=== PATIENT | male | born 1945 | race Caucasian/White ===

== ENCOUNTER 2020-06-13 07:24 | Day surgery (SDC) | payer OTHER ==
[2020-06-09 16:31] LABS: Absolute Lymphocytes (CBC) 1.3 K/uL (0.7-4.9); Basophils % 1.4 % (0-1.3); Hematocrit 37.6 % (39.6-49.0); MPV 7.9 fL (7.6-11.3); RBC Red Blood Cell Count 3.85 M/uL (4.33-5.43)
[2020-06-09 16:43] LABS: BUN Blood Urea Nitrogen 17 mg/dL (7-18); Bicarbonate 29 mmol/L (21-32); Glucose Level 99 mg/dL (74-106); Potassium 4.1 mmol/L (3.5-5.1); Sodium Level 142 mmol/L (136-145)
[2020-06-09 16:48] LABS: Protime INR 0.98
--- NOTE | 2020-06-09 16:56 | RAD REPORT ---
EXAM DESCRIPTION: RAD - Chest Pa And Lat (2 Views) - 06/09/2020 4:40 pm CLINICAL HISTORY: preop Chest pain. COMPARISON: CHEST PA AND LAT 2 VIEW dated 03/11/2012; CHEST PA AND LAT 2 VIEW dated 09/04/2011 TECHNIQUE: PA and lateral views of the chest were obtained. FINDINGS: The lungs are hyperexpanded compatible with COPD. The heart is upper limit of normal in si ze. No fracture or aggressive bony process. IMPRESSION: COPD without acute process identified.
--- NOTE | 2020-06-10 12:48 | EKG ---
Test Date: 2020-06-09 Test Time: 15:07:51 Energy Administrator: ELLIE MEASUREMENT RESULTS: Intervals: Rate: 47 AR: 362 QRSD: 96 QT: 482 QTc: 426 [place]: P: 68 AR: 362 QRS: 10 T: 55 INTERPRETIVE STATEMENTS: Marked sinus bradycardia with 1st degree AV block Abnormal ECG Compared to ECG 03/10/2001 11:30:00 First degree AV block now present Left ventricular hypertrophy no longer present Electronically Signed On 06-10-20 12:45:32 CDT by Hank Marcos
[2020-06-13] MEDS ORDERED: NA CHLORIDE 0.9% 500 ML ONE (07:45)
[2020-06-13] MEDS ORDERED: HEPA 1000U/500MLS 1,000 UNIT/500 ML BAG IV ONE (08:16)
[2020-06-13] MEDS ORDERED: ATROPINE SULF 1 MG/10 ML SYR IV ONE (08:17)
[2020-06-13] MEDS ORDERED: MIDAZOLAM HCL 2 MG/2 ML INJ ONE ×2 (08:17→08:47)
[2020-06-13] MEDS ORDERED: FENTANYL CITR 100 MCG/2 ML ONE (08:17)
[2020-06-13] MEDS ORDERED: NA CHLORIDE 0.9% 0 ML ONE (08:17)
[2020-06-13 11:04] VITALS: TEMP 96.7
[2020-06-13 11:05] VITALS: BP 173/88; O2SAT 99
--- NOTE | 2020-06-13 12:26 | OP ---
Surgeon: Hank Marcos MD Anesthesia Director: Dali Dewey. Procedure Performed: Admitted as an outpatient today to the research lab assistant for left heart catheterization, selective coronary arteriogram. Indication: Hypertension, atypical chest pain, and a positive stress test. Procedure In Detail: Mr. Cross is a 74-year-old male with history of hypertension. Had an abnormal stress test. Brought to the research lab assistant today as an outpatient, prepped and draped in the routine ster ile fashion. Given Versed and fentanyl for sedation. Using Seldinger technique, a 6-Kuwaiti sheath i ntroduced in the right common femoral artery successfully. Angiography there was normal. He had 10 mL of Xylocaine. Angio-Seal was used to close the case. Kelly catheter left and right were used t o cannulate the left main and right main respectively. He was found to have a very large left main c ircumflex and LAD proximally. 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 The RCA was normal, 20% stenosis approximately. He was left dominant. The patient tolerated t he procedure well. There were no complications. A 6-Kuwaiti catheters and sheaths were used. Blood loss was 5 mL. 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 Plan: Plan for medical therapy. I will increase his beta-donald. Consider use of statin. Anesthesia: Total conscious sedation 45 minutes. The patient will remain at bedrest for 2 hours after the procedure and he will go home. I will see h im in the office in 2 weeks. KATERINA/TAQUERIA Voice ID: [id number] Report ID: [id number]
== END 2020-06-13 11:11 | disposition home or self-care (01) ==
LOC: CCL 07:24
DX: I25.10 Atherosclerotic heart disease of native coronary artery without angina pectoris (principal); I25.41 Coronary artery aneurysm; I10 Essential (primary) hypertension; Z88.0 Allergy status to penicillin; Z20.822 Contact with and (suspected) exposure to COVID-19
CPT/HCPCS: 93005; 85025; 80048; 36415; 85610; 85730; 71046; 93454; U0003; C1893; C1760; J2250; J3010; J7040; J1644; J0583

== ENCOUNTER 2020-08-26 03:54 | Inpatient (IN) | payer OTHER ==
--- OUTSIDE RECORDS SUMMARY | 2020-08-26 03:56 | XMS REPORT | Continuity of Care Document ---
:1945 Author Organization [facility] t Address [address] [place] [address] Care Team Providers Name Role Phone Sarah Castano DO Primary Care Physician [phone] Payers Payer Name Policy Type Policy Number Effective Date Expiration Date S ource Problems This patient has no known problems. Allergies, Adverse Reactions, Alerts Allergy Allergy Status Severity Reaction(s) Onset Inactive Treating Comm ents Source Name Type Date Date Clinician Penicill Propensi Active 2018-0 [place] ins ty to 913 [facility] adverse 00:00: st reaction 00 s to drug Penicill DA Active SV 2018-0 [facility] 5[facility]10 [place] Social History Social Habit Start Date Stop Date Quantity Comments Source History [facility] Alcohol Std Drinks History [facility] Alcohol Binge Tobacco use and 2018-11-14 2018-11-14 Never used Nakul Rueda ethodist exposure 00:00:00 00:00:00 Alcohol intake 2018-11-14 2018-11-14 [facility] 00:00:00 00:00:00 non-drinker (finding) History [facility] 2018-11-14 2018-11-14 1 [facility] Alcohol Frequency 00:00:00 00:00:00 Sex Ass[birth year] At [birth year] Mota Mohit ethodist 00:00:00 00:00:00 Smoking Status Start Date Stop Date Source Never smoker Nakul Rosas t Medications Ordered Filled Start Stop Current Ordering Indication Dosage Frequency Signature Comments Components Source Medication Medication Date Date Medication? Clinician (SIG) Name Name ferrous Yes 325mg QD Take 325 [place] on sulfate 325 9-13 mg by Method[facility] (65 FE) MG 10:24: mouth st tablet 56 daily with breakfast. atenolol Yes 50mg QD Take 50 mg Micaela ston (TENORMIN) 8-18 by mouth Metho di 50 MG 00:00: daily. st tablet 00 lisinopril Yes 20mg QD Take 20 mg [place] (PRINIVIL,Z 7-15 by mouth Meth jay ESTRIL) 20 00:00: daily. st mg tablet 00 tamsulosin Yes .4mg QD Take 0.4 Micaela ston (FLOMAX) 7-11 mg by Methodi 0.4 mg 00:00: mouth st capsule 00 daily. Procedures This patient has no known procedures. Plan of Care Planned Activity Planned Date Details Comments Source Future Scheduled 2020-10-02 INFLUENZA VACCINE [facility] 00:00:00 [code = INFLUENZA VACCINE] Future Scheduled 2012-11-21 65+ PNEUMOCOCCAL [facility] 00:00:00 VACCINE (1 of 1 - PPSV23) [code = 65+ PNEUMOCOCCAL VACCINE (1 of 1 - PPSV23)] Future Scheduled 1997-11-21 COLONOSCOPY SCREENING Ho [facility] 00:00:00 [code = COLONOSCOPY SCREENING] Future Scheduled 1997-11-21 SHINGLES VACCINES (#1) [facility] 00:00:00 [code = SHINGLES VACCINES (#1)] Future Scheduled 1965-11-21 Hepatitis C screening [facility] 00:00:00 (procedure) [code = 070897669] Future Scheduled 1959 COVID-19 VACCINE (1) Micaela st[facility] 00:00:00 [code = COVID-19 VACCINE (1)] Results Test Description Test Time Test Comments Results Result Comments Source SURG 2018-07-22 15:59:00 --------RUN DATE: 07/22/18 [facility], [place] - LAB *LIVE* PAGE 1 RUN TIME: 1559 Specimen Inquiry RUN USER: INTERFACE --------PATIENT: TIM ALMEIDA LOC: FERMIN #: [id number] AGE/SX: 72/M ROOM: [facility] RE07/21/18REG DR: Jean Pierre Iniguez MD : 49 BED: 1 DIS: 07/22/18 STATUS: DIS Evelyn TLOC: -------- SPEC #: [id number] RECD: 07/21/18 STATUS: PREMA REQ #: [id number] GIOVANNA: 07/21/18-[address]: Jean Pierre Iniguez MD ENTERED: 07/21/18 SP TYPE: SURG OTHR DR: Luca Castano DO ORDERED: SURG PATH LVL 2 [place]: [place] [id number] [place] [address] [place] [id number] [employer] [facility] [address] [address] HISTOLOGY: TISSUE ID BLK PCS KEL LEV PROCEDURE DISPOSITION ____ ___ ___ ___ SOFT TISSUES, N A 1 PROCEDURES: SURG PATH LVL 2 (07/22/18-1238) TISSUES: A. SOFT TISSUES, NOS - UMBILICAL HERNIA CONTENTS CLINICAL HISTORY UMBILICAL HERNIA K43.9 CPT CODES CPT CODE(S): 24434 , , , , , , FINAL DIAGNOSIS Soft tissue, umbilical, hernia repair: MESOTHELIAL LINED SOFT TISSUE GROSS DESCRIPTION Umbilical hernia contents. Received in formalin is an irregular fragment of yellow-ornelas soft tissue, 1.0 x 0.8 x 0.6 cm. The specimen is serially sectioned and reveals fibrofatty soft tissue. The entire specimen submitted as A. ba/nr Grossing performed at [facility] [place] Pathology, [facility], [address], CONTINUED ON NEXT PAGE --------RUN DATE: 07/22/18 [facility] [place] - LAB *LIVE* PAGE 2 RUN TIME: 1559 Specimen Inquiry RUN USER: INTERFACE --------SPEC #: [id number] PATIENT: ELLETIM STREETER #[id number] (Continued) GROSS DESCRIPTION (Continued) [place], [place] [address]. Sanitation Superintendent: Kar Salazar M.D. MICROSCOPIC DESCRIPTION Umbilical hernia contents. Sections demonstrate soft tissue with mesothelial cell lining. Mild chronic inflammation is identified. No organs or major structures are seen. Signed SIGNATURE ON FILE Rene Brantley 07/22/18 1559 -------- END OF REPORT - XR CHEST 1 V 2018-07-11 Name: TIM ALMEIDA 12:10:00 [facility] : 1945 Age/S: 72 / M [address] Unit #: [id number] Loc: [place] [address] Phys: Jean Pierre Iniguez MD Acct: [id number] Dis Date: Status: PRE [facility] PHONE #: [phone] Exam Date: 07/11/2018 1206 FAX #: Reason: PRE OP EXAMS: CPT: [id number] XR CHEST 1 V 24661 Fluoro Time: DAP (Gy m2): Air Kerma (mGy): LOCATION: T18 EXAM: CHEST 1 VIEW INDICATION: PRE OP COMPARISON: None. TECHNIQUE: AP chest radiograph. FINDINGS: Lungs are clear bilaterally without effusion. Heart is normal in size. Bones and peripheral soft tissues are unremarkable. IMPRESSION: Lungs are clear. No acute abnormality. at 1210 Reported and signed by: Sean Colbert M.D. CC: Luca Castano DO; Jean Pierre Iniguez MD PAGE 1 Signed Report Name: TIM ALMEIDA [facility] : 1945 Age/S: 72 / M [address] Unit #: [id number] Loc: [place] [address] Phys: Jean Pierre Iniguez MD Acct: [id number] Dis Date: Status: PRE SDC PHONE #: [phone] Exam Date: 07/11/2018 1208 FAX #: Reason: PRE OP EXAMS: CPT: [id number] XR CHEST 1 V 45809 Fluoro Time: DAP (Gy m2): Air Kerma (mGy): <Continued> Technologist: Desmond Loyd RT(R)(CT) Trnscb Date/Time: 07/11/2018 (1210) [email or web address] Orig Print D/T: S: 07/11/2018 (1314) PAGE 2 Signed Report
[2020-08-26] MEDS ORDERED: NA CHLORIDE 0.9% 1,000 ML ONE ×2 (05:18→09:09)
[2020-08-26] MEDS ORDERED: ONDANSETRON 4 MG/2 ML VIAL ONE (05:18)
[2020-08-26 05:45] LABS: Absolute Lymphocytes (CBC) 0.6 K/uL (0.7-4.9); Basophils % 0.3 % (0-1.3); Hematocrit 44.5 % (39.6-49.0); Lymphocytes % 6.2 % (15.3-44.8); MPV 8.3 fL (7.6-11.3)
[2020-08-26 06:20] LABS: ALT/SGPT 32 U/L (12-78); AST/SGOT 23 U/L (15-37); Albumin 3.9 g/dL (3.4-5.0); Alkaline Phosphatase 63 U/L (45-117); BUN Blood Urea Nitrogen 32 mg/dL (7-18); Bicarbonate 26 mmol/L (21-32); Bilirubin Direct 0.2 mg/dL (0-0.2); Bilirubin Total 0.8 mg/dL (0.2-1.0); Glucose Level 140 mg/dL (74-106); Lipase 72 U/L (73-393); Magnesium 2.3 mg/dL (1.8-2.4); NT PRO-BNP 1050 pg/mL (<125); Potassium 4.1 mmol/L (3.5-5.1); Protein, Total 7.7 g/dL (6.4-8.2); Sodium Level 141 mmol/L (136-145); Troponin (Emerg Dept Use Only) < 0.02 ng/mL (0.0-0.045)
[2020-08-26 06:21] LABS: Protime INR 1.02
--- NOTE | 2020-08-26 07:29 | RAD REPORT ---
EXAM DESCRIPTION: CT - Abdomen Pelvis W Contrast - 08/26/2020 6:46 am CLINICAL HISTORY: Abdominal pain COMPARISON: none. TECHNIQUE: Computed axial tomography of the abdomen pelvis was obtained. 100 cc Isovue-300 was admin istered intravenously. Oral contrast was not requested which limits evaluation of bowel and appendix. All CT scans are performed using dose optimization technique as appropriate and may include automated exposure control or mA/KV adjustment according to patient size. FINDINGS: postsurgical changes involve the stomach and small bowel. The stomach is distended. Moderate dilatation of jejunum. Ileum is normal caliber. There is swirling of the small bowel within and the anterior lower abdomen just above the level of the iliac crest. This has the appearance of a volvulus. Several small low-density hepatic lesions too small to characterize by CT criteria probably cyst. Spleen, pancreas and adrenals unremarkable. Small nonobstructing left renal calculus. 15 millimeter cyst extends off of the right kidney. Mild enlargement of the prostate gland. No evidence of diverticulitis. Small amount of ascites IMPRESSION: Obstruction in the region of the distal jejunum. There appears to be a volvulus in this region.
--- NOTE | 2020-08-26 08:12 | ER ---
Nurse's Notes [facility] Name: Anuj Cross Age: 74 yrs Sex: Male : 1945 Arrival Date: 08/26/2020 Time: 03:57 Bed 15 Private MD: Diagnosis: Abdominal tenderness-HISTORY OF GASTRIC BYPASS;Volvulus;Vomiting Presentation: 08/26 04:24 Chief complaint: Patient states: N/V and some diarrhea since 1130 PM, reports pain em about umbilical area, denies fever. Coronavirus screen: Client denies travel out of the [place] in the last 14 days. Ebola Screen: Patient negative for fever greater than or equal to 101.5 degrees Fahrenheit, and additional compatible Ebola Virus Disease symptoms Patient denies exposure to infectious person. Patient denies travel to an Ebola-affected area in the 21 days before illness onset. No symptoms or risks identified at this time. Initial Sepsis Screen: Does the patient meet any 2 criteria? No. Patient's initial sepsis screen is negative. Does the patient have a suspected source of infection?. Risk Assessment: Do you want to hurt yourself or someone else? Patient reports no desire to harm self or others. Onset of symptoms was August 26, 2020. 04:24 Method Of Arrival: Ambulatory em 04:24 Acuity: LOUIE 3 em Historical: - Allergies: 04:27 PENICILLINS; em - PMHx: 04:27 Hypertension; em - PSHx: 04:27 Hernia repair; Gastric Bypass; em - Immunization history:: Adult Immunizations up to date. - Social history:: Smoking status: Patient denies any tobacco usage or history of. Screenin:00 Abuse screen: Denies threats or abuse. Denies injuries from another. Nutritional bp screening: No deficits noted. Tuberculosis screening: No symptoms or risk factors identified. Fall Risk None identified. Assessment: 04:30 General: Appears in no apparent distress. comfortable, Behavior is calm, cooperative, jb4 appropriate for age. Pain: Denies pain. Neuro: Level of Consciousness is awake, alert, obeys commands, Oriented to person, place, time, situation. Cardiovascular: Patient's skin is warm and dry. Respiratory: Airway is patent Respiratory effort is even, unlabored, Respiratory pattern is regular, symmetrical. GI: Abdomen is flat, non-distended, Reports nausea. : No signs and/or symptoms were reported regarding the genitourinary system. EENT: No signs and/or symptoms were reported regarding the EENT system. Derm: Skin is intact, Skin is pink, warm \T\ dry. Musculoskeletal: Circulation, motion, and sensation intact. Range of motion: intact in all extremities. 05:30 Reassessment: Patient appears in no apparent distress at this time. Patient and/or jb4 family updated on plan of care and expected duration. Pain level reassessed. Patient is alert, oriented x 3, equal unlabored respirations, skin warm/dry/pink. Patient states feeling better. 07:00 Reassessment: RECD REPORT FROM SRIDHAR QUINONEZ. 74YO WM P/W VOMITING. CT RESULTS PENDING. bp 09:00 Reassessment: Patient and/or family updated on plan of care and expected duration. Pain bp level reassessed. Patient is alert, oriented x 3, equal unlabored respirations, skin warm/dry/pink. HOSPITALIST AT B/S. ADMIT INITIATED. 11:00 Reassessment: ADMIT IN PROCESS. PT MOVED TO ED HOLD. bp 13:00 Reassessment: DR HOYT, SURG C/S, AT B/. bp 14:00 Reassessment: Patient appears in no apparent distress at this time. No changes from bp previously documented assessment. Patient and/or family updated on plan of care and expected duration. Pain level reassessed. ADMIT CANCELLED IN FAVOR OF TRANSFER TO [facility]. 15:00 Reassessment: No changes from previously documented assessment. Patient and/or family bp updated on plan of care and expected duration. Pain level reassessed. TRANSFER IN PROCESS. 16:18 Reassessment: REPORT TO SEPTEMBER RN AT [facility]. TRANSPORT PENDING. bp Vital Signs: 04:24 BP 135 / 96; Pulse 65; Resp 18; Temp 97.5; Pulse Ox 99% on R/A; Weight 108.86 kg; bp Height 6 ft. 4 in. (193.04 cm); Pain 0/10; 05:45 BP 141 / 74; Pulse 54; Resp 16; Pulse Ox 94% on R/A; jb4 07:00 BP 174 / 92; Pulse 58; Resp 16; Pulse Ox 97% ; bp 08:00 BP 173 / 95; Pulse 61; Resp 17; Pulse Ox 100% ; bp 09:00 BP 180 / 102; Pulse 60; Resp 17; Pulse Ox 100% ; bp 10:00 BP 197 / 92; Pulse 58; Resp 15; Pulse Ox 97% ; bp 11:00 BP 159 / 92; Pulse 66; Resp 15; Pulse Ox 96% ; bp 12:00 BP 145 / 66; Pulse 63; Resp 15; Pulse Ox 96% ; bp 13:00 BP 141 / 90; Pulse 69; Resp 15; Pulse Ox 96% ; bp 14:00 BP 166 / 79; Pulse 56; Resp 15; Pulse Ox 96% ; bp 15:00 BP 169 / 87; Pulse 62; Resp 16; Pulse Ox 96% ; bp 04:24 Body Mass Index 29.21 (108.86 kg, 193.04 cm) bp ED Course: 03:57 Patient arrived in ED. es 04:26 Triage completed. em 04:27 Arm band placed on. em 04:33 Greg Pena MD is Attending Physician. cristian 04:58 Fortino Cat, RN is Primary Nurse. jb4 05:10 Inserted saline lock: 20 gauge in right forearm, using aseptic technique. Blood bp collected. 05:14 XRAY Chest (1 view) In Process Unspecified. EDMS 06:46 CT Abd/Pelvis - IV Contrast Only In Process Unspecified. EDMS 07:00 Patient has correct armband on for positive identification. Bed in low position. Call bp light in reach. Side rails up X2. 07:09 Primary Nurse role handed off by Fortino Cat, RN bp 07:09 Willie Zapata, RN is Primary Nurse. bp 08:06 Juan Garza MD is Hospitalizing Provider. cristian 13:[address] Pena with Claudia from the [facility]. eb 13:[address] Hoyt the Bariatric Surgeon licensed nurse practitioner with Dr. Pena for patient eb transfer consultation. 14:17 administrative approval given by Claudia Martinez/ patient has been accepted to [facility]. / Dr. Hank Rao has accepted the patient in transfer/ faxing over a face sheet to [phone]. 14:30 patient will be going to [facility] Rm 434. eb 14:42 No provider procedures requiring assistance completed. Patient transferred, IV remains bp in place. Administered Medications: 05:10 Drug: Zofran (Ondansetron) 4 mg Route: IVP; Site: right forearm; jb4 10:54 Follow up: Response: No adverse reaction; No change in condition kg 05:10 Drug: NS 0.9% 1000 ml Route: IV; Rate: 1 bolus; Site: right forearm; jb4 11:09 Follow up: IV Status: Completed infusion; IV Intake: 1000ml bp 08:20 Drug: Pepcid (famotidine) 20 mg Route: IVP; Site: right forearm; bp 10:54 Follow up: Response: No adverse reaction; No change in condition kg 08:20 Drug: Cipro (ciprofloxacin) 400 mg Volume: 200 ml; Route: IVPB; Infused Over: 60 mins; bp Site: right forearm; 11:10 Follow up: IV Status: Completed infusion; IV Intake: 200ml bp 08:20 Drug: Flagyl (metroNIDAZOLE) 500 mg Volume: 100 ml; Route: IVPB; Rate: 200 ml/hr; bp Infused Over: 30 mins; Site: right forearm; 11:09 Follow up: IV Status: Completed infusion; IV Intake: 100ml bp 08:20 Drug: NS 0.9% 1000 ml Route: IV; Rate: 125 ml/hr; Site: right forearm; bp 11:10 Follow up: IV Status: Completed infusion bp 11:00 Drug: Zofran (Ondansetron) 4 mg Route: IVP; Site: right forearm; bp Intake: 11:09 IV: 100ml; Total: 100ml. bp 11:09 IV: 1000ml; Total: 1100ml. bp 11:10 IV: 200ml; Total: 1300ml. bp Outcome: 08:11 Decision to Hospitalize by Provider. cristian 14:00 ER care complete, transfer ordered by . cristian 16:18 Transferred by ground EMS to [facility], Transfer form completed. bp 16:18 Condition: stable 16:18 Instructed on the need for transfer. 17:04 Patient left the ED. zb Signatures: Dispatcher [employer] Greg Anna MD MD cha Salyer, Edna es Munoz, Edgar, RN RN Fortino Wilson RN RN jb4 Willie Zapata RN RN bp Botello, Elizabeth eb Brown, Zipporah, RN RN zb Herrera, Edel, RN RN kg Corrections: (The following items were deleted from the chart) 13:43 04:24 BP 135 / 96; Pulse 65bpm; Resp 18bpm; Pulse Ox 99% RA; Temp 97.5F; 108.86 kg; bp Height 6 ft. 4 in.; BMI: 29.2; Pain 0/10; em
--- NOTE | 2020-08-26 08:12 | EDPHYS ---
Physician Documentation [facility] Name: Anuj Cross Age: 74 yrs Sex: Male : 1945 Arrival Date: 08/26/2020 Time: 03:57 Bed 15 Private MD: ED Physician Greg Pena HPI: 08/26 06:03 This 74 yrs old Male presents to ER via Ambulatory with complaints of cristian Vomiting. 06:03 The patient presents to the emergency department with nausea, vomiting, abdominal pain, cristian of the right upper quadrant, left upper quadrant, right lower quadrant and left lower quadrant. Onset: The symptoms/episode began/occurred yesterday. Possible causes: unknown. The symptoms are aggravated by nothing. The symptoms are alleviated by nothing. Associated signs and symptoms: The patient has no apparent associated signs or symptoms. Severity of symptoms: At their worst the symptoms were mild in the emergency department the symptoms are unchanged. The patient has not experienced similar symptoms in the past. Historical: - Allergies: 04:27 PENICILLINS; em - PMHx: 04:27 Hypertension; em - PSHx: 04:27 Hernia repair; Gastric Bypass; em - Immunization history:: Adult Immunizations up to date. - Social history:: Smoking status: Patient denies any tobacco usage or history of. ROS: 06:04 Constitutional: Negative for fever, chills, and weight loss, Eyes: Negative for injury, cristian pain, redness, and discharge, ENT: Negative for injury, pain, and discharge, Neck: Negative for injury, pain, and swelling, Cardiovascular: Negative for chest pain, palpitations, and edema, Respiratory: Negative for shortness of breath, cough, wheezing, and pleuritic chest pain, Back: Negative for injury and pain, : Negative for injury, bleeding, discharge, and swelling, MS/Extremity: Negative for injury and deformity, Skin: Negative for injury, rash, and discoloration, Neuro: Negative for headache, weakness, numbness, tingling, and seizure, Psych: Negative for depression, anxiety, suicide ideation, homicidal ideation, and hallucinations, Allergy/Immunology: Negative for hives, rash, and allergies, Endocrine: Negative for neck swelling, polydipsia, polyuria, polyphagia, and marked weight changes, Hematologic/Lymphatic: Negative for swollen nodes, abnormal bleeding, and unusual bruising. 06:04 Abdomen/GI: Positive for abdominal pain, nausea and vomiting, of the right upper quadrant, left upper quadrant, right lower quadrant and left lower quadrant. Exam: 06:04 Constitutional: This is a well developed, well nourished patient who is awake, alert, cristian and in no acute distress. Head/Face: Normocephalic, atraumatic. Eyes: Pupils equal round and reactive to light, extra-ocular motions intact. Lids and lashes normal. Conjunctiva and sclera are non-icteric and not injected. Cornea within normal limits. Periorbital areas with no swelling, redness, or edema. ENT: Nares patent. No nasal discharge, no septal abnormalities noted. Tympanic membranes are normal and external auditory canals are clear. Oropharynx with no redness, swelling, or masses, exudates, or evidence of obstruction, uvula midline. Mucous membranes moist. Neck: Trachea midline, no thyromegaly or masses palpated, and no cervical lymphadenopathy. Supple, full range of motion without nuchal rigidity, or vertebral point tenderness. No Meningismus. Chest/axilla: Normal chest wall appearance and motion. Nontender with no deformity. No lesions are appreciated. Cardiovascular: Regular rate and rhythm with a normal S1 and S2. No gallops, murmurs, or rubs. Normal PMI, no JVD. No pulse deficits. Respiratory: Lungs have equal breath sounds bilaterally, clear to auscultation and percussion. No rales, rhonchi or wheezes noted. No increased work of breathing, no retractions or nasal flaring. Abdomen/GI: Soft, non-tender, with normal bowel sounds. No distension or tympany. No guarding or rebound. No evidence of tenderness throughout. Back: No spinal tenderness. No costovertebral tenderness. Full range of motion. Male : Normal genitalia with no discharge or lesions. Skin: Warm, dry with normal turgor. Normal color with no rashes, no lesions, and no evidence of cellulitis. MS/ Extremity: Pulses equal, no cyanosis. Neurovascular intact. Full, normal range of motion. Neuro: Awake and alert, GCS 15, oriented to person, place, time, and situation. Cranial nerves II-XII grossly intact. Motor strength 5/5 in all extremities. Sensory grossly intact. Cerebellar exam normal. Normal gait. Psych: Awake, alert, with orientation to person, place and time. Behavior, mood, and affect are within normal limits. 06:06 ECG was reviewed by the Attending Physician. [facility] Vital Signs: 04:24 BP 135 / 96; Pulse 65; Resp 18; Temp 97.5; Pulse Ox 99% on R/A; Weight 108.86 kg; bp Height 6 ft. 4 in. (193.04 cm); Pain 0/10; 05:45 BP 141 / 74; Pulse 54; Resp 16; Pulse Ox 94% on R/A; jb4 07:00 BP 174 / 92; Pulse 58; Resp 16; Pulse Ox 97% ; bp 08:00 BP 173 / 95; Pulse 61; Resp 17; Pulse Ox 100% ; bp 09:00 BP 180 / 102; Pulse 60; Resp 17; Pulse Ox 100% ; bp 10:00 BP 197 / 92; Pulse 58; Resp 15; Pulse Ox 97% ; bp 11:00 BP 159 / 92; Pulse 66; Resp 15; Pulse Ox 96% ; bp 12:00 BP 145 / 66; Pulse 63; Resp 15; Pulse Ox 96% ; bp 13:00 BP 141 / 90; Pulse 69; Resp 15; Pulse Ox 96% ; bp 14:00 BP 166 / 79; Pulse 56; Resp 15; Pulse Ox 96% ; bp 15:00 BP 169 / 87; Pulse 62; Resp 16; Pulse Ox 96% ; bp 04:24 Body Mass Index 29.21 (108.86 kg, 193.04 cm) bp MDM: 04:33 Patient medically screened. [facility] 06:05 Differential diagnosis: Nonspecific abd pain, gastritis. Data reviewed: vital signs, [facility] nurses notes, lab test result(s), EKG, radiologic studies. 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 rate is 65 beats/min, rhythm is regular, Pulse oximetry: on room air is 99 %. Test interpretation: by ED physician or midlevel provider: ECG, plain radiologic studies. Counseling: I had a detailed discussion with the patient and/or guardian regarding: the historical points, exam findings, and any diagnostic results supporting the discharge/admit diagnosis, lab results, radiology results. 08/26 04:33 Order name: Basic Metabolic Panel; Complete Time: 07:48 tl1 08/26 04:33 Order name: CBC with Diff; Complete Time: 06:02 tl1 06/25 04:33 Order name: LFT's; Complete Time: 07:48 tl1 08/26 04:33 Order name: Magnesium; Complete Time: 07:48 tl1 08/26 04:33 Order name: NT PRO-BNP; Complete Time: 07:48 tl1 08/26 04:33 Order name: PT-INR; Complete Time: 07:48 tl1 08/26 04:33 Order name: Troponin (emerg Dept Use Only); Complete Time: 07:48 tl1 08/26 04:33 Order name: XRAY Chest (1 view); Complete Time: 14:11 tl1 08/26 04:33 Order name: Lipase; Complete Time: 07:48 tl1 08/26 05:27 Order name: CT Abd/Pelvis - IV Contrast Only; Complete Time: 07:48 [facility] 08/26 09:26 Order name: SARS-COV-2 RT PCR; Complete Time: 14:11 EDMS 08/26 04:33 Order name: EKG; Complete Time: 04:34 tl1 08/26 04:33 Order name: Cardiac monitoring; Complete Time: 05:14 tl1 08/26 04:33 Order name: EKG - Nurse/Tech; Complete Time: 05:50 tl1 08/26 04:33 Order name: IV Saline Lock; Complete Time: 05:14 tl1 08/26 04:33 Order name: Labs collected and sent; Complete Time: 05:14 tl1 08/26 04:33 Order name: O2 Per Protocol; Complete Time: 05:14 tl1 08/26 04:33 Order name: O2 Sat Monitoring; Complete Time: 05:14 tl1 08/26 09:43 Order name: CONS Physician Consult EDMS EC:06 Rate is 58 beats/min. Rhythm is regular. QRS Oil Trough is Normal. FL interval is normal. QRS cristian interval is normal. QT interval is normal. No Q waves. T waves are Normal. No ST changes noted. Clinical impression: Sinus bradycardia. Interpreted by me. Reviewed by me. Administered Medications: 05:10 Drug: Zofran (Ondansetron) 4 mg Route: IVP; Site: right forearm; jb4 10:54 Follow up: Response: No adverse reaction; No change in condition kg 05:10 Drug: NS 0.9% 1000 ml Route: IV; Rate: 1 bolus; Site: right forearm; jb4 11:09 Follow up: IV Status: Completed infusion; IV Intake: 1000ml bp 08:20 Drug: Pepcid (famotidine) 20 mg Route: IVP; Site: right forearm; bp 10:54 Follow up: Response: No adverse reaction; No change in condition kg 08:20 Drug: Cipro (ciprofloxacin) 400 mg Volume: 200 ml; Route: IVPB; Infused Over: 60 mins; bp Site: right forearm; 11:10 Follow up: IV Status: Completed infusion; IV Intake: 200ml bp 08:20 Drug: Flagyl (metroNIDAZOLE) 500 mg Volume: 100 ml; Route: IVPB; Rate: 200 ml/hr; bp Infused Over: 30 mins; Site: right forearm; 11:09 Follow up: IV Status: Completed infusion; IV Intake: 100ml bp 08:20 Drug: NS 0.9% 1000 ml Route: IV; Rate: 125 ml/hr; Site: right forearm; bp 11:10 Follow up: IV Status: Completed infusion bp 11:00 Drug: Zofran (Ondansetron) 4 mg Route: IVP; Site: right forearm; bp Disposition: 08/26/20 14:00 Transfer ordered to [facility]. Diagnosis are Abdominal tenderness - HISTORY OF GASTRIC BYPASS, Volvulus, Vomiting. - Reason for transfer: Higher level of care. - Accepting physician is to [facility]. - Condition is Fair. - Problem is new. - Symptoms have improved. Signatures: Dispatcher [employer] [facility] Greg Pena MD MD cha Munoz, Edgar, RN RN Lainey Lucio RN RN Meli Cedillo RN RN tl1 Fortino Cat RN RN jb4 Willie Zapata RN RN bp Botello, Elizabeth eb Brown, Zipporah, RN RN zEdel Grant, RN RN kg Corrections: (The following items were deleted from the chart) 08:33 08:04 CORONAVIRUS+.LAB.UNRULYZ ordered. [facility] 10:12 08:11 Hospitalization Ordered by Juan Garza MD for Inpatient Admission. Preliminary diagnosis is Abdominal tenderness; Vomiting; Volvulus - DISTAL JEJUNUM. Bed requested for Telemetry/MedSurg (Inpatient). Status is Inpatient Admission. Condition is Stable. Problem is new. Symptoms have improved. cristian 13:23 10:12 08/26/2020 08:11 Hospitalization Ordered by Juan Garza MD for Inpatient eb Admission. Preliminary diagnosis is Abdominal tenderness; Vomiting; Volvulus - DISTAL JEJUNUM. Bed requested for [facility] ER HOLD. Status is Inpatient Admission. Condition is Stable. Problem is new. Symptoms have improved. iw 13:54 13:23 08/26/2020 08:11 Hospitalization Ordered by Juan Garza MD for Inpatient eb Admission. Preliminary diagnosis is Abdominal tenderness; Vomiting; Volvulus - DISTAL JEJUNUM. Bed requested for Telemetry/MedSurg (Inpatient). Status is Inpatient Admission. Condition is Stable. Problem is new. Symptoms have improved. eb 13:57 13:54 08/26/2020 08:11 Hospitalization Ordered by Juan Garza MD for Inpatient cristian Admission. Preliminary diagnosis is Abdominal tenderness; Vomiting; Volvulus - DISTAL JEJUNUM. Bed requested for [facility] ER HOLD. Status is Inpatient Admission. Condition is Stable. Problem is new. Symptoms have improved. eb 17:04 14:00 08/26/2020 14:00 Transfer ordered to [facility]. Diagnosis is Abdominal zb tenderness - HISTORY OF GASTRIC BYPASS; Volvulus; Vomiting. Reason for transfer: Higher level of care. [place] physician [place] [facility] Condition is Fair. Problem is new. Symptoms have improved. cristian
--- NOTE | 2020-08-26 08:26 | RAD REPORT ---
EXAM DESCRIPTION: Telly Single View08/26/2020 5:14 am CLINICAL HISTORY: Cough COMPARISON: June 2020 FINDINGS: The lungs appear clear of acute infiltrate. The heart is borderline enlarged IMPRESSION: No acute abnormalities displayed
[2020-08-26] MEDS ORDERED: METRONIDAZOLE 500mg IVPB 500 MG/100 ML BAG IV ONE (09:09)
[2020-08-26] MEDS ORDERED: CIPROFLOXACIN 400mg IV 400 MG/200 ML BAG IV ONE (09:09)
[2020-08-26] MEDS ORDERED: FAMOTIDINE 20 MG/2 ML VIAL IV ONE (09:09)
--- NOTE | 2020-08-26 09:48 | P.HP ---
Certification for Inpatient Patient admitted to: Inpatient With expected LOS: >2 Midnights Practitioner: I am a practitioner with admitting privileges, knowledge of patient current condition, hospital course, and medical plan of care. Services: Services provided to patient in accordance with Admission requirements found in Title 42 Section 412.3 of the Code of Federal Regulations Patient History Date of Service: 08/26/20 Reason for admission: SBO vs volvulus History of Present Illness: 74yo M, PMH: HTN, Rebekah-en-Y gastric bypass, iron deficiency Pt presents to ED due to persistent nausea/vomiting since yesterday. Symptoms began yesterday morning with severe mid-abdominal pain after breakfast. Episode lasted ~2 hours. As the day progressed he began to have more nausea and vomiting (dark brown/greer emesis). Unable to keep anything down. Had a small BM last night. No flatus or BM today. No pain today. Emesis ~q1hr today. In the ED, workup noted for CT Abd/pelvis: obstruction in region of distal jejunum, appears to be a volvulus in this region. He does not appear septic at this time, labs rather unremarkable, mildly elevated BNP. ED provider discussed case with general surgery who stated would see patient in consult later this morning. Allergies Penicillins Allergy (Severe, Verified 06/09/20 15:55) childhood reaction, does not know - Past Medical/Surgical History -: HTN -: hernia repair -: Rebekah-en-Y gastric bypass - Family History Family History: Reviewed- Non-Contributory - Social History Smoking Status: Never smoker Alcohol use: No Place of Residence: Home Review of Systems 10-point ROS is otherwise unremarkable Physical Examination - Physical Exam General: Alert, Mild distress (+nausea, +emesis) HEENT: Mucous membr. moist/pink, Sclerae nonicteric Neck: Supple Respiratory: Clear to auscultation bilaterally, Normal air movement Cardiovascular: No edema, Regular rate/rhythm, Normal S1 S2 Gastrointestinal: Soft and benign, Non-distended, Tenderness (mild epigastric tenderness on deep palpation) Musculoskeletal: No contractures, No tenderness Integumentary: No rashes, No breakdown Neurological: Normal speech, Normal strength at 5/5 x4 extr, Normal affect - Studies Laboratory Data (last 24 hrs) 08/26/20 05:10: PT 11.7, INR 1.02 08/26/20 05:10: WBC 9.60, Hgb 14.8, Hct 44.5, Plt Count 266 08/26/20 05:10: Sodium 141, Potassium 4.1, BUN 32 H, Creatinine 0.93, Glucose 140 H, Magnesium 2.3, Total Bilirubin 0.8, AST 23, ALT 32, Alkaline Phosphatase 63, Lipase 72 L Assessment and Plan - Advance Directives Does patient have a Living Will: Yes Does patient have a Durable POA for Healthcare: Yes Physician Review Additional Text: Problem List Volvuls / SBO h/o Rebekah-en-Y gastric bypass HTN -NPO, IVF, cipro&flagyl -General surgery consulted - Dr. Muñoz -obtain/confirm home medications -IV PRN antihypertensives while NPO -nauseous / vomiting in ED, NGT to [facility] if persists -serial abd exams -pt not septic Time Spent Managing Pts Care (In Minutes): 65
[2020-08-26] MEDS ORDERED: NA CHLORIDE 0.9% 1,000 ML IV SCH (10:47)
[2020-08-26] MEDS ORDERED: HYDRALAZINE HCL 20 MG/ML VIAL IV PRN (10:47)
[2020-08-26] MEDS ORDERED: ONDANSETRON 4 MG/2 ML VIAL IV PRN (10:47)
[2020-08-26] MEDS ORDERED: HYDRALAZINE HCL 20 MG/ML VIAL ONE (11:48)
[2020-08-26 14:12] VITALS: BMI 29.2
[2020-08-26 14:22] VITALS: TEMP 98.9
--- NOTE | 2020-08-26 16:01 | CON ---
Date of Consultation: 08/26/2020 Reason For Service: Small bowel obstruction. History Of Present Illness: This is a case of a 74-year-old patient comes to us with abdominal pain. He has been having it for several days and nausea, vomiting associated with it, found to have a bow el obstruction and a surgical consult was obtained. His surgery was Rebekah-en-Y gastric bypass which w as done in 2004. His daughter also had the same surgery, but the doctor who practices those is no lo nger available. Allergies: PENICILLIN. Social History: He does smoke. He does not drink alcohol. Family History: Noncontributory. Social Habits: No smoking. No drinking. Surgeries: As above. Review of Systems: As per H and P. No melena. No hematochezia. Physical Examination: General: The patient is awake, alert. Eyes: Pupils anicteric. Chest: Clear. Abdomen: Soft and depressible. No peritonitis, but mildly distended. Pain over the left side of th e abdomen. Rectal: Deferred. Extremities: Good capillary refill. Laboratory Data: Blood work shows WBC count of 9.6 with hemoglobin of 14.8. INR is 1.02. Creatinin e is 0.93, glucose 140. CT scan of the abdomen and pelvis shows small bowel obstruction, shows posts urgical changes from Rebekah-en-Y gastric bypass with an area of intestine that look like he is obstruct ed and cannot rule out a volvulus or a scar tissue. No pericolonic, colonic wall or intestinal wall pneumatosis. changes after the Rebekah-en-Y gastric bypass or the possibility of a volvulus . Assessment: Small bowel obstruction. Plan: I discussed the case with the primary and the ER physician. I believe this patient should be seen in the bariatric center. He has a Rebekah-en-Y gastric bypass with complications now with bowel ob struction. May need a revision I believe. He better be served in a bariatric center. The patient an d family fully explained. The patient will be transferred. EYAD/TAQUERIA Voice ID: [id number] Report ID: [id number]
[2020-08-26] MEDS ORDERED: METRONIDAZOLE 500mg IVPB 500 MG/100 ML BAG IV SCH (17:00)
[2020-08-26 17:19] VITALS: O2SAT 96
[2020-08-26 17:33] VITALS: BP 169/87
[2020-08-26] MEDS ORDERED: CIPROFLOXACIN 400mg IV 400 MG/200 ML BAG IV SCH (21:00)
--- NOTE | 2020-08-27 06:59 | EKG ---
Test Date: 2020-08-26 Test Time: 05:27:33 Homicide Detective: YVETTE MEASUREMENT RESULTS: Intervals: Rate: 58 GA: 210 QRSD: 102 QT: 478 QTc: 469 Ryan: P: 7 GA: 210 QRS: 24 T: 10 INTERPRETIVE STATEMENTS: Sinus bradycardia with 1st degree AV block Otherwise normal ECG Compared to ECG 06/09/2020 15:07:51 No significant changes Electronically Signed On 08-27-20 06:56:30 CDT by Hank Marcos
== END 2020-08-26 17:04 | disposition short-term general hospital (02) | DRG 390 ==
LOC: ER 03:54 → ERHOLD 09:42
PROVIDERS: ADMIT Hospitalist; ATTEND Hospitalist
DX: K56.609 Unspecified intestinal obstruction, unspecified as to partial versus complete obstruction (principal); K56.2 Volvulus; I10 Essential (primary) hypertension; Z20.822 Contact with and (suspected) exposure to COVID-19; Z98.84 Bariatric surgery status
CPT/HCPCS: 36415; 71045; 74177; 80048; 80076; 83690; 83735; 83880; 84484; 85025; 85610; 93005; 94760; 96361; 96365; 96366; 96368; 96375; 99285; J0360; J0744; J2405; J7030; Q9967; U0003

== ENCOUNTER 2022-12-14 06:29 | Day surgery (SDC) | payer OTHER ==
[2022-12-12 15:11] LABS: Absolute Lymphocytes (CBC) 1.2 K/uL (0.7-4.9); Hematocrit 36.5 % (39.6-49.0); Lymphocytes % 21.6 % (15.3-44.8); MCV 97.5 fL (80-100); MPV 7.4 fL (7.6-11.3); Platelets 226 thou/uL (152-406); RBC Red Blood Cell Count 3.75 M/uL (4.33-5.43)
--- NOTE | 2022-12-12 15:17 | RAD REPORT ---
EXAM DESCRIPTION: RAD - Chest Pa And Lat (2 Views) - 12/12/2022 3:11 pm CLINICAL HISTORY: pre op pending heart catheterization Chest pain. TECHNIQUE: PA and lateral views of the chest were obtained. FINDINGS: The lungs are hyperexpanded compatible with COPD. The heart is upper limit of normal in si ze. No fracture or aggressive bony process. Small hiatal hernia. IMPRESSION: COPD without acute process identified. The USPSTF recommends annual screening for lung cancer with low-dose CT (LDCT) in adults aged 50 to 8 0 years who have a 20 pack-year smoking history and currently smoke or have quit within the past 15 y ears.
[2022-12-12 15:27] LABS: Protime INR 1.01
[2022-12-12 15:29] LABS: Potassium 3.6 mEq/L (3.5-5.1)
--- NOTE | 2022-12-13 12:28 | EKG ---
Test Date: 2022-12-12 Test Time: 14:51:38 Scratch Finisher: UNRULY MEASUREMENT RESULTS: Intervals: Rate: 59 ME: 380 QRSD: 96 QT: 448 QTc: 443 [place]: P: 50 ME: 380 QRS: -4 T: 40 INTERPRETIVE STATEMENTS: Sinus bradycardia with 1st degree AV block with premature supraventricular complexes Possible Left atrial enlargement Left ventricular hypertrophy Abnormal ECG Compared to ECG 08/26/2020 05:27:33 Atrial premature complex(es) now present Left ventricular hypertrophy now present Electronically Signed On 12-13-22 12:27:51 CDT by Darwin Cortez
[2022-12-14] MEDS ORDERED: HEPA 1000U/500MLS 2,000 UNIT/1,000 ML BAG IV ONE (06:39)
[2022-12-14] MEDS ORDERED: VERAPAMIL HCL 10 MG/4 ML VIAL IV ONE (06:40)
[2022-12-14] MEDS ORDERED: HEPARIN 5000 UNIT/ML 1 ML VIAL ONE (06:40)
[2022-12-14] MEDS ORDERED: FENTANYL CITR 100 MCG/2 ML ONE (06:40)
[2022-12-14] MEDS ORDERED: MIDAZOLAM HCL 2 MG/2 ML INJ ONE (06:40)
[2022-12-14] MEDS ORDERED: HEPARIN 10,000 UNIT/10 ML VIAL IV ONE (06:41)
[2022-12-14] MEDS ORDERED: ASPIRIN 325 MG TAB ONE (06:41)
[2022-12-14] MEDS ORDERED: LIDOCAINE 1% 20 ML MDV ONE (06:41)
[2022-12-14] MEDS ORDERED: CLOPIDOGREL 75 MG TABLET ONE (06:41)
[2022-12-14] MEDS ORDERED: ATROPINE SULF 1 MG/10 ML SYR IV ONE (06:41)
[2022-12-14] MEDS ORDERED: TICAGRELOR 90 MG TABLET PO ONE (06:41)
[2022-12-14] MEDS ORDERED: NA CHLORIDE 0.9% 500 ML ONE (06:43)
[2022-12-14] MEDS ORDERED: NITROGLYCERIN/D5W 25 MG/250 ML BTL IV ONE (07:05)
--- NOTE | 2022-12-14 08:10 | OP ---
Date of Procedure: 12/14/2022 Surgeon: BEAU PERRY Procedures Performed: 1.Selective coronary angiogram. 2.Left heart catheterization. Indication: Chest pain with episodes of ventricular tachycardia. Access: Right radial artery 6-Hungarian, closed with TR band. Complications: None. Bleeding: Less than 20 mL. Total Sedation Time: 25 minutes. Description Of Procedure: After risks, benefits, and alternatives were explained, patient agreed to procedure and signed informed consent. Patient was brought into the cardiac catheterization laborato , prepped and draped in usual sterile fashion. Then, I accessed the right radial artery using pedi atric micropuncture kit and placed a 6-Hungarian Slender sheath and took 5-Hungarian [place] 4 catheter into the aortic root, engaged the left main and then right coronary artery, took standard views and the ca theter was pushed over the wire into the LV, measured LVEDP. Pull-back did not record any gradient a nd removed the catheter and the sheath, placed TR band with good hemostasis. Findings: 1.Left main: Very large and aneurysmal, but no disease. 2.LAD: Proximal segment large and aneurysmal. No disease. Mid and distal segments are normal in c aliber and no disease and diagonal branches are normal. 3.Left circumflex: The proximal segment is slightly aneurysmal with no disease. The rest of the ci rcumflex appears to be normal. 4.RCA normal and dominant. 5.LVEDP slightly elevated at 70 mmHg. Conclusion: 1.No coronary artery disease. 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 2.Elevated LVEDP. Recommendation: Medical management. /TAQUERIA Voice ID: [id number] Report ID: [id number]
[2022-12-14 08:47] VITALS: TEMP 98
[2022-12-14 09:10] VITALS: O2SAT 99
[2022-12-14 09:39] VITALS: BP 160/85
== END 2022-12-14 09:30 | disposition home or self-care (01) ==
LOC: PRE 06:29
PROVIDERS: ATTEND Internal Medicine
DX: I47.29 Other ventricular tachycardia (principal); R07.9 Chest pain, unspecified; I25.41 Coronary artery aneurysm; I71.20 Thoracic aortic aneurysm, without rupture, unspecified; I10 Essential (primary) hypertension; Z79.899 Other long term (current) drug therapy; Z88.0 Allergy status to penicillin
CPT/HCPCS: 36415; 71046; 76937; 80048; 85025; 85610; 85730; 93005; 93458; C1893; J0461; J1644; J2001; J2250; J3010; J7040; Q9966